=== PATIENT | male | born 2000 | race Caucasian/White ===

== ENCOUNTER 2020-10-05 13:25 | Emergency (ER) | payer OTHER ==
[2020-10-05 13:46] VITALS: BP 110/63
--- NOTE | 2020-10-05 14:00 | ER Document Report ---
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 [facility] told them to this emergency room because it sounded like an emergency. Patient denies any chest pain shortness of breath, nausea, vomiting, diarrhea, fevers or chills, headache, changes in vision, apposition down arms or legs abdominal pain dysuria, bloody stools. Has not tried any buoe-mlg-wydaeii medications. Patient's not had any positive Covid test. He does intermittently vape. States his cough has been getting a little bit worse, he has had some muscle aches but he states he recently bought a house and he thought this might be related to his body aches Past Medical History - General Information source: Patient - Social History Smoking Status: Current Every Day Smoker Family History: Reviewed & Not Pertinent Vertical Provider Document - CONSTITUTIONAL Agree With Documented VS: Yes Exam Limitations: No Limitations General Appearance: WD/WN Notes: PHYSICAL EXAMINATION:reviewed vital signs by RN GENERAL: Well-appearing, well-nourished and in no acute distress. HEAD: Atraumatic, normocephalic. EYES: Pupils equal round and reactive to light, extraocular movements intact, conjunctiva are normal. ENT: TM intact with bilateral serous effusion, no erythema. Nares boggy bilaterally, oropharynx with erythema without exudates. Moist mucous membranes. NECK: Normal range of motion, supple without lymphadenopathy LUNGS: Breath sounds clear to auscultation bilaterally and equal. No wheezes rales or rhonchi. HEART: Regular rate and rhythm without murmurs ABDOMEN: Soft, nontender, nondistended abdomen. No guarding, no rebound. No masses appreciated. Female : deferred Musculoskeletal: Normal range of motion, no pitting or edema. No cyanosis. NEUROLOGICAL: Cranial nerves grossly intact. Normal speech, normal gait. Normal sensory, motor exams PSYCH: Normal mood, normal affect. SKIN: Warm, Dry, normal turgor, no rashes or lesions noted. Course - Re-evaluation Re-evalutation: 10/05/20 13:59 Afebrile vital stable no distress. Rapid strep negative, rapid influenza negative, chest x-ray unremarkable. Covid test is pending. Discussed with patient that he has a first set of instigation's, he does need to social distance, wash his hands, wear his mask and self quarantine until Covid test result is known. Patient verbalized an understanding of this plan and agree with plan of care. After performing a Medical Screening Examination, I estimate there is LOW risk for ACUTE CORONARY SYNDROME, PULMONARY EMBOLI, RESPIRATORY FAILURE, SEPSIS OR MENINGITIS, thus I consider the discharge disposition reasonable. I have reevaluated this patient multiple times and no significant life threatening changes are noted. The patient and I have discussed the diagnosis and risks, and we agree with discharging home with close follow-up. We also discussed returning to the Emergency Department immediately if new or worsening symptoms occur. We have discussed the symptoms which are most concerning (e.g., changing or worsening pain, trouble swallowing or breathing, neck stiffness, fever) that necessitate immediate return. - Vital Signs Vital signs: Temp Pulse Resp BP Pulse Ox 98.1 F 70 16 110/63 100 10/05/20 13:44 10/05/20 13:44 10/05/20 13:44 10/05/20 13:44 10/05/20 13:44 Discharge - Discharge Clinical Impression: Cough, Person under investigation for COVID-19 Condition: Stable Disposition: HOME, SELF-CARE Instructions: COVID-19 Guidance for Persons Under Investigation Additional Instructions: Please self quarantine, wash your hands, wear your mask and social distance until your Covid test result is known Prescriptions: Albuterol Sulfate [Proair Hfa Inhalation Aerosol 8.5 gm Mdi] 1 puff IH Q4 PRN #1 mdi PRN Reason: Cough Referrals: GERMÁN FLORENCE MD [ACTIVE STAFF] - Follow up as needed
--- NOTE | 2020-10-05 14:28 | RADIOLOGY REPORT (SQ) ---
EXAM DESCRIPTION: CHEST SINGLE VIEW IMAGES COMPLETED DATE/TIME: 10/05/2020 2:16 pm REASON FOR STUDY: cough x 1w COMPARISON: None. NUMBER OF VIEWS: One view. TECHNIQUE: Single frontal radiographic view of the chest acquired. LIMITATIONS: None. FINDINGS: LUNGS AND PLEURA: No opacities, masses or pneumothorax. No pleural effusion. MEDIASTINUM AND HILAR STRUCTURES: No masses. Contour normal. HEART AND VASCULAR STRUCTURES: Heart normal in size. Normal vasculature. BONES: No acute findings. HARDWARE: None in the chest. OTHER: No other significant finding. IMPRESSION: NO SIGNIFICANT RADIOGRAPHIC FINDING IN THE CHEST. TECHNICAL DOCUMENTATION: JOB ID: [id number] 2010 [employer]- All Rights Reserved Reading location - IP/workstation name: [email or web address]
[2020-10-05 15:08] LABS: A TYPE INFLUENZA AG NEGATIVE (NEGATIVE); B INFLUENZA AG NEGATIVE (NEGATIVE)
== END 2020-10-05 16:00 | disposition home or self-care (01) ==
LOC: ER 13:25
DX: J02.9 Acute pharyngitis, unspecified (principal); R05 Cough; Z20.828 Contact with and (suspected) exposure to other viral communicable diseases; F17.200 Nicotine dependence, unspecified, uncomplicated
CPT/HCPCS: 99284; 87070; 87880; 87635; 87804; 71045; C9803